=== PATIENT | male | born 1990 | race Caucasian/White ===

== ENCOUNTER → 2020-03-05 | Outpatient (CLI) | payer BC | END | disposition home or self-care (01) | LOC: LABWHC1 10:49 | PROVIDERS: ATTEND Internal Medicine Gastroenterology | DX: Z11.59 Encounter for screening for other viral diseases (principal) | CPT/HCPCS: 87635 ==

== ENCOUNTER → 2020-03-07 | Day surgery (SDC) | payer BC ==
[2020-03-06 12:58] VITALS: BMI 29.5
[~2020-03-07] MED LIST: LACTATED RINGERS 1,000 ML IV SCH; LIDOCAINE 1% (10MG/ML) FOR IV START INTRADERMA PRN; PROPOFOL 10 MG/ML 20 ML VIAL IV ONE
[2020-03-07 08:31] VITALS: TEMP 97.1
--- NOTE | 2020-03-07 10:02 | P.PCN ---
Date of Procedure: 03/07/20 Procedure(s) Performed: BRIEF HISTORY: Patient is a 29-year-old, pleasant, white male scheduled for an upper endoscopy as a part of evaluation of GERD for the last several months duration. He is presently on Prilosec and Carafate deciliter his symptoms. He does have globus-like sensation this area with intermittent dysphagia and hence scheduled for an upper endoscopy. PROCEDURE PERFORMED: Esophagogastroduodenoscopy with biopsy. PREOPERATIVE DIAGNOSIS: GERD/dysphagia. IV sedation per anesthesia. PROCEDURE: After informed consent was obtained, the patient was brought into the endoscopy unit. IV sedation was administered by Anesthesia under continuous monitoring. Initially the Olympus GIF-140 video endoscope was inserted into the mouth. Esophagus intubated without any difficulty. It was gradually advanced into the stomach and duodenum and carefully examined. The bulb and the second part of the duodenum appeared normal. The scope at this time was withdrawn to the stomach, adequately insufflated with air, and upon careful examination, mucosa of the antrum, body, cardia and the fundus appeared normal. The scope was then withdrawn into the esophagus. The GE junction was located at 39 cm from the incisors. Small hiatal hernia noted. There was a 5 mm short tongue of Fonseca's appearing mucosa extending 5 mm proximal to the GE junction was biopsied. There were no erosions or ulcerations seen, as well as of esophagus appeared normal and the patient tolerated the procedure well. IMPRESSION: 1. Short tongue of Fonseca's appearing mucosa extending 5 mm proximal to the GE junction status post biopsy. 2. More hiatal hernia. RECOMMENDATIONS: The findings of this examination were discussed with the patient as well as a family. He was advised to follow with the biopsy results. He'll continue with Prilosec daily and Carafate as needed.. He was briefly educated about diet modification antireflux measures
[2020-03-07 10:18] VITALS: PULSE 70; RESP 16
[2020-03-07 10:38] VITALS: BP 120/70
== END ==
LOC: ORWHC2ENDO 08:12
PROVIDERS: ATTEND Internal Medicine Gastroenterology
DX: K22.70 Barrett's esophagus without dysplasia (principal); K44.9 Diaphragmatic hernia without obstruction or gangrene; K21.9 Gastro-esophageal reflux disease without esophagitis; F17.220 Nicotine dependence, chewing tobacco, uncomplicated; Z88.0 Allergy status to penicillin; Z79.899 Other long term (current) drug therapy
CPT/HCPCS: 88305; 43239; J2704

== ENCOUNTER → 2020-05-08 | Outpatient (CLI) | payer BC | END | disposition home or self-care (01) | LOC: LABWHC1 15:02 | PROVIDERS: ATTEND Emergency Medicine | DX: Z20.828 Contact with and (suspected) exposure to other viral communicable diseases (principal) | CPT/HCPCS: U0003; C9803 ==

== ENCOUNTER → 2022-11-10 | Outpatient (CLI) | payer BC ==
--- NOTE | 2022-11-12 17:39 | MR ---
EXAMINATION TYPE: MR hip RT wo con DATE OF EXAM: 11/10/2022 COMPARISON: NONE HISTORY: 32-year-old male M25.551 Right hip pain TECHNIQUE: Multiplanar, multisequence images of the right hip were obtained without IV contrast. FINDINGS: No evidence for hip fracture or AVN. No significant joint effusion. Both hip joints appear intact. However, there is some asymmetric capsular edema along the lateral margin of the superior acetabulum, possibly relating to underlying superior labral tear potentially extending from the 11:00 position b ack to the 3:00 position, sagittal images 17 through 19 and coronal images 7 through 13. No paralabra l cyst is identified. Mild edema tracks up along the posterior aspect of the medial ileum. SI joints and sacrum appear intact. No suspicious bone marrow edema. The rectus femoris and hamstrings origins as well as the iliopsoas and gluteal insertions appear norm al. Symmetric course, caliber, and signal intensity of the sciatic nerves. IMPRESSION: 1. Asymmetric capsular edema along the lateral margin of the right superior acetabulum, possibly rela ting to an underlying superior labral tear. This potentially extends from the 11:00 position back to the 3:00 position. If indicated, consideration can be given to MR arthrogram to confirm. 2. Otherwise, no specific abnormality seen.
== END | disposition home or self-care (01) ==
LOC: RADMRIMAIN 15:02
PROVIDERS: ATTEND Orthopaedic Surgery
DX: M25.551 Pain in right hip (principal); R60.0 Localized edema

== ENCOUNTER → 2024-07-10 | Day surgery (SDC) | payer BC ==
[~2024-07-10] MED LIST changes: -LACTATED RINGERS 1,000 ML IV SCH; -LIDOCAINE 1% (10MG/ML) FOR IV START INTRADERMA PRN; +LIDOCAINE 1% INJ 10MG/ML (20 ML MDV) ONE
[2024-07-10] MEDS: IV FLUID CONTINUATION 1,000 ML IV ONE (13:02)
[2024-07-10] MEDS: LACTATED RINGERS 1,000 ML IV SCH (13:14)
[2024-07-10 13:20] VITALS: RESP 16; TEMP 97.5
--- NOTE | 2024-07-10 13:37 | P.PCN ---
Date of Procedure: 07/10/24 Procedure(s) Performed: BRIEF HISTORY: Patient is a 33-year-old, pleasant, white male as a part of evaluation of lungs and history of GERD and Fonseca's esophagus. PROCEDURE PERFORMED: Esophagogastroduodenoscopy with biopsy. PREOPERATIVE DIAGNOSIS: GERD/Fonseca's esophagus. IV sedation per anesthesia. PROCEDURE: After informed consent was obtained, the patient was brought into the endoscopy unit. IV sedation was administered by Anesthesia under continuous monitoring. Initially the Olympus GIF-140 video endoscope was inserted into the mouth. Esophagus intubated without any difficulty. It was gradually advanced into the stomach and duodenum and carefully examined. The bulb and the second part of the duodenum appeared normal. The scope at this time was withdrawn to the stomach, adequately insufflated with air, and upon careful examination, mucosa of the antrum, body, cardia and the fundus appeared normal. The scope was then withdrawn into the esophagus. Small sliding-type hiatal hernia noted. The GE junction was located at 43 cm from the incisors. There is a 2 islands of Fonseca's appearing mucosa measuring 2 to 3 mm in size which were biopsied. The rest of the esophagus appeared normal. There were no erosions or ulcerations seen and the patient tolerated the procedure well. IMPRESSION: 1. Short segment Fonseca's esophagus s/p biopsy. 2. Small sliding-type hiatal hernia. RECOMMENDATIONS: The findings of this examination were discussed with the patient as well as his family. He was advised to follow-up the biopsy results. The biopsy confirms the presence of Fonseca's esophagus he can have repeat upper endoscopy in 3 years. In the meantime he will continue with Protonix every day and follow antireflux measures.
[2024-07-10 14:01] VITALS: BP 103/68; PULSE 69
== END ==
LOC: ORWHC2ENDO 11:51
PROVIDERS: ATTEND Internal Medicine Gastroenterology
DX: K22.70 Barrett's esophagus without dysplasia
CPT/HCPCS: 43239; 88305